=== PATIENT | female | born 1955 | race Caucasian/White ===

== ENCOUNTER → 2016-09-12 | Outpatient (CLI) | payer OTHER ==
[~2016-09-12] MED LIST: ALTACE; ASPIR-LOW81 MG PO; ASPIRIN 81M81 MG/TA2 PO; BACTRIM DS 8001 TAB PO; COLACE 100100 MG/CAP PO; DOXYCYCLINE 10100 MG PO; FLEXERIL 1010 MG/TAB PO; FLEXERIL10 MG PO; FORTAMET500 MG PO; GLUCOTROL5 MG PO; LANTUS100 U/ML; LANTUS100 U/ML SC; LASIX 40MG TABL40 MG PO; LEVAQUIN 5500 MG/TA1 PO; LEVEMIR; LEVEMIR100 U/ML SC; LEVEMIR100 U/ML SQ; LIPITOR 10MG10 MG PO; METFORMIN HCL1000 MG PO; METFORMIN HCL500 M1 PO; METOPROLOL TART75 MG PO; MIRALAX PA17 GM/Dose PO; MOTRIN 800800 MG/TAB PO; NAPROSYN PO; NITROSTAT0.4 MG/TAB SL; NO HOME MEDICATIONS; NORCO 325 MG-51 TAB PO; NORCO 325 MG-7.1 TAB PO; NOVOLOG 100U100 U/M1; NOVOLOG 100U100 U/M1 SQ; PERCOCET 5/321 UDTAB PO; PLAVIX 75MG TAB75 MG PO; PRINIVIL5 MG PO; PROTONIX 40MG T40 MG PO; PYRIDIUM 100MG100 MG PO; TOPROL XL 50MG50 MG PO; TYLENOL 500MG500 MG PO; ULTRAM50 MG PO; VITAMIN; ZESTRIL 10MG10 MG PO; ZOCOR 40MG40 MG PO; ZOFRAN 4MG T4 MG/TAB PO; [UNRECOGNIZED DRUG - REMARK]
== END ==
LOC: WCC 09-07 10:11
DX: E11.621 Type 2 diabetes mellitus with foot ulcer (principal); L97.519 Non-pressure chronic ulcer of other part of right foot with unspecified severity
CPT/HCPCS: 27510; A6197; G0463

== ENCOUNTER → 2016-09-24 | Outpatient (CLI) | payer OTHER | LOC: COL.VAS 09:41 | DX: I70.291 Other atherosclerosis of native arteries of extremities, right leg (principal); I77.1 Stricture of artery; L97.519 Non-pressure chronic ulcer of other part of right foot with unspecified severity; Z89.421 Acquired absence of other right toe(s) ==

== ENCOUNTER → 2016-09-26 | Outpatient (CLI) | payer OTHER | LOC: WCC 11:12 | DX: T81.31XA Disruption of external operation (surgical) wound, not elsewhere classified, initial encounter (principal); E11.9 Type 2 diabetes mellitus without complications | CPT/HCPCS: 18867; 27510; A6197; A6209; G0463 ==

== ENCOUNTER → 2016-10-10 | Outpatient (CLI) | payer OTHER | LOC: WCC 10:11 | DX: E11.621 Type 2 diabetes mellitus with foot ulcer (principal); L97.519 Non-pressure chronic ulcer of other part of right foot with unspecified severity; S98.131A Complete traumatic amputation of one right lesser toe, initial encounter | CPT/HCPCS: 17716; 27510; A6197; A6212; G0463 ==

== ENCOUNTER → 2016-11-05 | Outpatient (CLI) | payer OTHER | LOC: WCC 10-24 11:28 | DX: E11.621 Type 2 diabetes mellitus with foot ulcer (principal); L97.519 Non-pressure chronic ulcer of other part of right foot with unspecified severity; M86.671 Other chronic osteomyelitis, right ankle and foot; Z89.421 Acquired absence of other right toe(s) | CPT/HCPCS: A6212 ==

== ENCOUNTER → 2016-11-19 | Outpatient (CLI) | payer OTHER | LOC: WCC 08:44 | DX: E11.621 Type 2 diabetes mellitus with foot ulcer (principal); L97.519 Non-pressure chronic ulcer of other part of right foot with unspecified severity; S98.131D Complete traumatic amputation of one right lesser toe, subsequent encounter | CPT/HCPCS: 27517; A6207; G0463 ==

== ENCOUNTER 2016-11-28 06:15 | Day surgery (SDC) | payer OTHER ==
[2016-11-28] VITALS (88 sets, daily range): BP systolic 107–170; BP diastolic 48–78; PULSE 70–84; TEMP 97–98; O2SAT 90–99
[~2016-11-28] VITALS: Ht 160 cm; Wt 80.9 kg
[~2016-11-28 06:15] MED LIST changes: -LEVEMIR100 U/ML SQ; -METOPROLOL TART75 MG PO; -NITROSTAT0.4 MG/TAB SL
[2016-11-28 07:04] LABS: CALCIUM 10.3 mg/dL (8.4-10.2); CREATININE, serum 0.96 mg/dL (0.52-1.25); POTASSIUM 4.5 mmol/L (3.4-5.0)
[2016-11-28 07:08] LABS: INR 1.1 (0.8-3.0); PROTHROMBIN TIME 11.8 SECONDS (9.7-12.8)
[2016-11-28 07:14] LABS: HEMATOCRIT 39.3 % (37.0-47.0); HEMOGLOBIN 12.9 g/dl (12.5-16.0); MEAN CELL VOLUME 93 fl (80.0-100.0); MEAN CORPUSCULAR HEMOGLOBIN 30 pg (27.0-31.0); MEAN CORPUSCULAR HGB CONC 33 g/dl (33.0-37.0); MEAN PLATELET VOLUME 11.6 fl (7.4-10.4); PLATELET COUNT 246 K/mm3 (130-400); RED BLOOD COUNT 4.25 M/mm3 (4.10-5.30); REDCELL DISTRIBUTION WIDTH-CV 11.9 % (11.5-14.5)
[2016-11-29] VITALS: BP 125/58; PULSE 73; TEMP 98.1
[2016-11-29 04:00] VITALS: BP 118/62; PULSE 79; TEMP 97.6
[2016-11-29 06:39] LABS: CALCIUM 9.4 mg/dL (8.4-10.2); CREATININE, serum 0.96 mg/dL (0.52-1.25); POTASSIUM 4.2 mmol/L (3.4-5.0)
[2016-11-29 06:43] LABS: BASO % 0.3 % (0.0-2.0); EOS # 0.2 (0.0-0.7); EOS % 3.2 % (0-4.0); GRAN # 4.5 (1.4-6.5); GRAN % 59.7 % (42.2-75.2); HEMATOCRIT 37.3 % (37.0-47.0); HEMOGLOBIN 12.1 g/dl (12.5-16.0); LYMPH # 2.1 (1.2-3.4); LYMPH % 27.4 % (20.0-51.0); MEAN CELL VOLUME 94 fl (80.0-100.0); MEAN CORPUSCULAR HEMOGLOBIN 30 pg (27.0-31.0); MEAN CORPUSCULAR HGB CONC 32 g/dl (33.0-37.0); MEAN PLATELET VOLUME 11.5 fl (7.4-10.4); MONO # 0.7 (0.1-0.6); MONO % 9.1 % (1.7-9.3); PLATELET COUNT 214 K/mm3 (130-400); RED BLOOD COUNT 3.98 M/mm3 (4.10-5.30); WHITE BLOOD COUNT 7.6 K/mm3 (4.8-10.8)
[2016-11-29 07:45] VITALS: BP 127/40; PULSE 74; TEMP 98.3
[2016-11-29] MEDS ORDERED: NITROSTAT0.4 MG/TAB SL (09:27)
== END 2016-11-29 12:10 | disposition home or self-care (01) ==
LOC: COL.CAR 06:15 → IMCU 06:15 → COL.CAR 11-29 12:10
PROVIDERS: Internal Medicine Cardiovascular Disease
DX: T82.855A Stenosis of coronary artery stent, initial encounter (principal); I25.119 Atherosclerotic heart disease of native coronary artery with unspecified angina pectoris; I10 Essential (primary) hypertension; I73.9 Peripheral vascular disease, unspecified; R94.39 Abnormal result of other cardiovascular function study; I25.2 Old myocardial infarction; E11.9 Type 2 diabetes mellitus without complications; E78.5 Hyperlipidemia, unspecified; Z79.4 Long term (current) use of insulin; Z87.891 Personal history of nicotine dependence
CPT/HCPCS: OP; C1760; C1769; C1874; C1887; C9600; C9601; J0583; J1815; J2250; J3010; Q9967

== ENCOUNTER → 2016-12-03 | Outpatient (CLI) | payer OTHER ==
[~2016-12-03] MED LIST changes: +LEVEMIR100 U/ML SQ; +METOPROLOL TART75 MG PO; +NITROSTAT0.4 MG/TAB SL
== END ==
LOC: WCC 08:44
DX: E11.621 Type 2 diabetes mellitus with foot ulcer (principal); L97.519 Non-pressure chronic ulcer of other part of right foot with unspecified severity
CPT/HCPCS: 27510; A6197; G0463

== ENCOUNTER 2017-02-23 18:25 | Inpatient (IN) | payer OTHER ==
[2017-02-23] VITALS (68 sets, daily range): BP systolic 145–146; BP diastolic 59–64; PULSE 78–80; TEMP 97.5; O2SAT 62–100
[~2017-02-23] VITALS: Ht 160 cm; Wt 84.7 kg
[~2017-02-23 18:25] MED LIST changes: -LEVEMIR100 U/ML SQ; -METOPROLOL TART75 MG PO
[2017-02-23 18:45] LABS: BASO % 0.3 % (0.0-2.0); EOS # 0.3 (0.0-0.7); EOS % 3.3 % (0-4.0); GRAN # 4.8 (1.4-6.5); GRAN % 52.8 % (42.2-75.2); HEMOGLOBIN 12.3 g/dl (12.5-16.0); LYMPH # 3.1 (1.2-3.4); MEAN CELL VOLUME 91 fl (80.0-100.0); MEAN CORPUSCULAR HEMOGLOBIN 31 pg (27.0-31.0); MEAN CORPUSCULAR HGB CONC 34 g/dl (33.0-37.0); MEAN PLATELET VOLUME 11.9 fl (7.4-10.4); MONO # 0.8 (0.1-0.6); MONO % 9.3 % (1.7-9.3); PLATELET COUNT 247 K/mm3 (130-400); RED BLOOD COUNT 4.02 M/mm3 (4.10-5.30); REDCELL DISTRIBUTION WIDTH-CV 11.7 % (11.5-14.5); WHITE BLOOD COUNT 9.1 K/mm3 (4.8-10.8)
[2017-02-23 18:46] LABS: HEMATOCRIT 36.4 % (37.0-47.0)
[2017-02-23 18:53] LABS: ADJUSTED CALCIUM 9.7 mg/dL (8.4-10.2); ALANINE AMINOTRANSFERASE 31 U/L (9-52); ALBUMIN 4.4 gm/dL (3.5-5.0); ALKALINE PHOSPHATASE 92 U/L (50-136); ANION GAP 13 mmol/L (7-16); BILIRUBIN,TOTAL 0.9 mg/dL (0.0-1.0); BLOOD UREA NITROGEN 30 mg/dL (7-17); CARBON DIOXIDE 29 mmol/L (22-30); CHLORIDE 95 mmol/L (98-107); CREATININE, serum 1.36 mg/dL (0.52-1.25); GLUCOSE 133 mg/dL (74-106); POTASSIUM 4.1 mmol/L (3.4-5.0); SODIUM 137 mmol/L (137-145); TOTAL PROTEIN 7.9 gm/dL (6.4-8.2)
[2017-02-23 18:55] LABS: PROTHROMBIN TIME 11.2 SECONDS (9.7-12.8)
[2017-02-23 18:57] LABS: PARTIAL THROMBOPLASTIN TIME 29.3 SECONDS (26.0-37.0)
[2017-02-23 19:04] LABS: TROPONIN-I < 0.012 ng/mL (0.000-0.034)
[2017-02-23 22:06] LABS: MAGNESIUM 2.1 mg/dL (1.6-2.3)
[2017-02-24] VITALS (143 sets, daily range): BP systolic 116–159; BP diastolic 52–69; PULSE 65–86; TEMP 96.7–98.1; O2SAT 93–100
[2017-02-24 01:11] LABS: PROTHROMBIN TIME 11.1 SECONDS (9.7-12.8)
[2017-02-24 01:13] LABS: PARTIAL THROMBOPLASTIN TIME 28.9 SECONDS (26.0-37.0)
[2017-02-24 06:01] LABS: BASO % 0.4 % (0.0-2.0); EOS # 0.3 (0.0-0.7); EOS % 4.7 % (0-4.0); GRAN # 3.4 (1.4-6.5); GRAN % 47.1 % (42.2-75.2); LYMPH # 2.9 (1.2-3.4); LYMPH % 40.2 % (20.0-51.0); MEAN CELL VOLUME 92 fl (80.0-100.0); MEAN CORPUSCULAR HGB CONC 33 g/dl (33.0-37.0); MEAN PLATELET VOLUME 11.8 fl (7.4-10.4); MONO # 0.5 (0.1-0.6); MONO % 7.3 % (1.7-9.3); PLATELET COUNT 180 K/mm3 (130-400); RED BLOOD COUNT 3.65 M/mm3 (4.10-5.30); REDCELL DISTRIBUTION WIDTH-CV 11.8 % (11.5-14.5); WHITE BLOOD COUNT 7.2 K/mm3 (4.8-10.8)
[2017-02-24 06:04] LABS: HEMATOCRIT 33.6 % (37.0-47.0); HEMOGLOBIN 11.1 g/dl (12.5-16.0); MEAN CORPUSCULAR HEMOGLOBIN 30 pg (27.0-31.0)
[2017-02-24 06:11] LABS: ADJUSTED CALCIUM 9.5 mg/dL (8.4-10.2); ALBUMIN 3.6 gm/dL (3.5-5.0); BILIRUBIN,TOTAL 0.5 mg/dL (0.0-1.0); CALCIUM 9.2 mg/dL (8.4-10.2); CREATININE, serum 0.93 mg/dL (0.52-1.25); POTASSIUM 3.6 mmol/L (3.4-5.0); TOTAL PROTEIN 6.7 gm/dL (6.4-8.2)
[2017-02-24 06:22] LABS: TROPONIN-I 0.015 ng/mL (0.000-0.034)
[2017-02-25] VITALS (10 sets, daily range): BP systolic 120–163; BP diastolic 55–69; PULSE 77–96; TEMP 97.8–98.7
[2017-02-25] MEDS ORDERED: METOPROLOL TART75 MG PO (11:56)
[2017-02-25] MEDS ORDERED: LEVEMIR100 U/ML SQ (11:58)
== END 2017-02-25 14:19 | disposition home or self-care (01) | DRG 303 ==
LOC: COL.ER 18:25 → ICU 19:35 → MEDICAL 19:35
PROVIDERS: Emergency Medicine; Nurse Practitioner Family
DX: I25.110 Atherosclerotic heart disease of native coronary artery with unstable angina pectoris (principal); N17.9 Acute kidney failure, unspecified; E11.65 Type 2 diabetes mellitus with hyperglycemia; I10 Essential (primary) hypertension; E78.5 Hyperlipidemia, unspecified; R01.1 Cardiac murmur, unspecified; D64.9 Anemia, unspecified; I25.2 Old myocardial infarction; Z95.5 Presence of coronary angioplasty implant and graft; Z87.891 Personal history of nicotine dependence; Z79.4 Long term (current) use of insulin
CPT/HCPCS: 99223-AI; 99233-AI; 99239; A9502; J1650; J1815; J2270; J2785; J7030; J7040

== ENCOUNTER 2017-11-12 13:36 | Inpatient (IN) | payer OTHER ==
[2017-11-12] VITALS (112 sets, daily range): BP systolic 93–103; BP diastolic 54–58; PULSE 77–83; TEMP 97.6–98.3; O2SAT 93–100
[~2017-11-12] VITALS: Ht 160 cm; Wt 78.1 kg
[~2017-11-12 13:36] MED LIST changes: +LEVEMIR100 U/ML SQ; +METOPROLOL TART75 MG PO
[2017-11-12] MEDS ORDERED: ZITHROMAX600 MG PO (16:04)
[2017-11-12 16:23] LABS: BASO % 0.3 % (0.0-2.0); EOS # 0.1 (0.0-0.7); EOS % 0.9 % (0-4.0); GRAN % 74.9 % (42.2-75.2); HEMOGLOBIN 12.1 g/dl (12.5-16.0); LYMPH % 14.4 % (20.0-51.0); MEAN CELL VOLUME 90 fl (80.0-100.0); MEAN CORPUSCULAR HEMOGLOBIN 30 pg (27.0-31.0); MEAN CORPUSCULAR HGB CONC 33 g/dl (33.0-37.0); MEAN PLATELET VOLUME 12.9 fl (7.4-10.4); MONO # 0.6 (0.1-0.6); MONO % 9.1 % (1.7-9.3); PLATELET COUNT 152 K/mm3 (130-400); RED BLOOD COUNT 4.02 M/mm3 (4.10-5.30); REDCELL DISTRIBUTION WIDTH-CV 11.5 % (11.5-14.5)
[2017-11-12 16:24] LABS: HEMATOCRIT 36.2 % (37.0-47.0)
[2017-11-12 16:36] LABS: ALANINE AMINOTRANSFERASE 48 U/L (9-52); ALBUMIN 4.3 gm/dL (3.5-5.0); ALKALINE PHOSPHATASE 204 U/L (50-136); ANION GAP 15 mmol/L (7-16); AST,SGOT 24 U/L (15-37); BLOOD UREA NITROGEN 23 mg/dL (7-17); CALCIUM 9.6 mg/dL (8.4-10.2); CARBON DIOXIDE 23 mmol/L (22-30); CREATININE, serum 0.95 mg/dL (0.52-1.25); POTASSIUM 5.1 mmol/L (3.4-5.0); SODIUM 123 mmol/L (137-145); TOTAL PROTEIN 7.6 gm/dL (6.4-8.2)
[2017-11-12 16:38] LABS: CHLORIDE 85 mmol/L (98-107)
[2017-11-12 16:40] LABS: COLLECTION METHOD CLEAN CATCH
[2017-11-12 16:45] LABS: PH 6 (5-8); SQUAMOUS EPITHELIAL 0-2 /hpf; URINE APPEARANCE Clear; URINE BACTERIA None Seen /hpf; URINE BILIRUBIN Negative (NEGATIVE); URINE BLOOD Negative (NEGATIVE); URINE COLOR Straw; URINE GLUCOSE 3+ (NEGATIVE); URINE KETONE Trace (NEGATIVE); URINE LEUKOCYTE ESTERASE Negative (NEGATIVE); URINE NITRATE Negative (NEGATIVE); URINE PROTEIN(semi-quant) Negative (NEGATIVE); URINE RBC None Seen /hpf; URINE UROBILINOGEN Negative (NEGATIVE)
[2017-11-12 16:46] LABS: LIPASE 137 U/L (23-300); PHOSPHOROUS 5.2 mg/dL (2.5-4.5)
[2017-11-12 16:56] LABS: GLUCOSE 750 mg/dL (74-106)
[2017-11-12 17:36] LABS: ACETONE,SERUM NEGATIVE
[2017-11-13] VITALS (388 sets, daily range): BP systolic 91–132; BP diastolic 44–78; PULSE 73–88; TEMP 98.3–99.2; O2SAT 70–100
[2017-11-13 05:56] LABS: MEAN CELL VOLUME 90 fl (80.0-100.0); MEAN CORPUSCULAR HGB CONC 33 g/dl (33.0-37.0); MEAN PLATELET VOLUME 12.3 fl (7.4-10.4); PLATELET COUNT 158 K/mm3 (130-400); RED BLOOD COUNT 3.84 M/mm3 (4.10-5.30); REDCELL DISTRIBUTION WIDTH-CV 11.8 % (11.5-14.5)
[2017-11-13 06:02] LABS: HEMATOCRIT 34.7 % (37.0-47.0); HEMOGLOBIN 11.6 g/dl (12.5-16.0); MEAN CORPUSCULAR HEMOGLOBIN 30 pg (27.0-31.0)
[2017-11-13 06:08] LABS: ALBUMIN 3.7 gm/dL (3.5-5.0); BILIRUBIN,TOTAL 0.6 mg/dL (0.0-1.0); CALCIUM 8.9 mg/dL (8.4-10.2); CREATININE, serum 0.81 mg/dL (0.52-1.25); TOTAL PROTEIN 6.7 gm/dL (6.4-8.2)
[2017-11-13 15:32] LABS: CALCIUM 8.7 mg/dL (8.4-10.2); CREATININE, serum 0.93 mg/dL (0.52-1.25); POTASSIUM 4.1 mmol/L (3.4-5.0)
[2017-11-14 04:16] VITALS: BP 125/55; PULSE 89; TEMP 99.8
[2017-11-14 06:54] LABS: MEAN CELL VOLUME 93 fl (80.0-100.0); MEAN CORPUSCULAR HGB CONC 33 g/dl (33.0-37.0); MEAN PLATELET VOLUME 12.2 fl (7.4-10.4); PLATELET COUNT 147 K/mm3 (130-400); RED BLOOD COUNT 3.58 M/mm3 (4.10-5.30); REDCELL DISTRIBUTION WIDTH-CV 11.7 % (11.5-14.5)
[2017-11-14 06:58] LABS: HEMATOCRIT 33.1 % (37.0-47.0); HEMOGLOBIN 10.9 g/dl (12.5-16.0); MEAN CORPUSCULAR HEMOGLOBIN 30 pg (27.0-31.0)
[2017-11-14 07:10] LABS: CALCIUM 8.6 mg/dL (8.4-10.2); CREATININE, serum 0.9 mg/dL (0.52-1.25); POTASSIUM 4.2 mmol/L (3.4-5.0)
[2017-11-14 07:34] LABS: ANISOCYTOSIS 1+; BAND 2 % (0-10); EOSINOPHIL 4 % (0-4); LYMPHOCYTE 31 % (20.0-51.0); NEUTROPHILS 55 % (42.0-75.2); PLATELET ESTIMATE NORMAL (NORMAL)
[2017-11-14 08:24] VITALS: BP 108/46; PULSE 87; TEMP 98.1
[2017-11-14 08:51] VITALS: BP 110/58
[2017-11-14 11:11] VITALS: BP 155/66; PULSE 77; TEMP 98
[2017-11-14 15:16] VITALS: BP 110/49; PULSE 83
[2017-11-14 19:43] VITALS: BP 159/65; PULSE 81; TEMP 97.6
[2017-11-15] VITALS (10 sets, daily range): BP systolic 96–143; BP diastolic 36–87; PULSE 71–87; TEMP 97–98.2
[2017-11-15 06:45] LABS: MEAN CELL VOLUME 94 fl (80.0-100.0); MEAN CORPUSCULAR HGB CONC 32 g/dl (33.0-37.0); MEAN PLATELET VOLUME 11.7 fl (7.4-10.4); PLATELET COUNT 140 K/mm3 (130-400); RED BLOOD COUNT 3.66 M/mm3 (4.10-5.30); REDCELL DISTRIBUTION WIDTH-CV 11.6 % (11.5-14.5)
[2017-11-15 06:49] LABS: HEMATOCRIT 34.4 % (37.0-47.0); HEMOGLOBIN 11.1 g/dl (12.5-16.0); MEAN CORPUSCULAR HEMOGLOBIN 30 pg (27.0-31.0)
[2017-11-15 07:01] LABS: CALCIUM 8.9 mg/dL (8.4-10.2); CREATININE, serum 0.81 mg/dL (0.52-1.25); POTASSIUM 4.5 mmol/L (3.4-5.0)
[2017-11-15 08:05] LABS: BAND 3 % (0-10); EOSINOPHIL 8 % (0-4); LYMPHOCYTE 59 % (20.0-51.0); NEUTROPHILS 27 % (42.0-75.2)
[2017-11-15 08:15] LABS: PLATELET ESTIMATE NORMAL (NORMAL)
[2017-11-16 03:40] VITALS: BP 145/55; PULSE 78; TEMP 97.7
[2017-11-16 07:32] LABS: MEAN CELL VOLUME 94 fl (80.0-100.0); MEAN CORPUSCULAR HGB CONC 32 g/dl (33.0-37.0); MEAN PLATELET VOLUME 12.2 fl (7.4-10.4); PLATELET COUNT 169 K/mm3 (130-400); RED BLOOD COUNT 3.89 M/mm3 (4.10-5.30); REDCELL DISTRIBUTION WIDTH-CV 11.9 % (11.5-14.5)
[2017-11-16 07:37] LABS: HEMATOCRIT 36.6 % (37.0-47.0); HEMOGLOBIN 11.7 g/dl (12.5-16.0); MEAN CORPUSCULAR HEMOGLOBIN 30 pg (27.0-31.0)
[2017-11-16 07:41] LABS: CALCIUM 9.3 mg/dL (8.4-10.2); CREATININE, serum 0.75 mg/dL (0.52-1.25); POTASSIUM 4.5 mmol/L (3.4-5.0)
[2017-11-16 08:01] VITALS: BP 130/49; PULSE 78; TEMP 98.3
[2017-11-16 08:33] LABS: BAND 2 % (0-10); EOSINOPHIL 2 % (0-4); HYPOCHROMIA 1+; LYMPHOCYTE 55 % (20.0-51.0); NEUTROPHILS 34 % (42.0-75.2); PLATELET ESTIMATE NORMAL (NORMAL)
[2017-11-16 11:20] VITALS: BP 128/43; PULSE 78; TEMP 98.4
[2017-11-16 15:13] VITALS: BP 115/48; PULSE 73; TEMP 98
[2017-11-16 20:07] VITALS: BP 149/61; PULSE 82; TEMP 97.8
[2017-11-17 00:32] VITALS: BP 123/52; PULSE 78; TEMP 98.6
[2017-11-17 04:16] VITALS: BP 147/65; PULSE 79; TEMP 98
[2017-11-17 07:31] LABS: BASO % 0.4 % (0.0-2.0); EOS # 0.2 (0.0-0.7); EOS % 3.6 % (0-4.0); GRAN # 2.5 (1.4-6.5); GRAN % 47.5 % (42.2-75.2); HEMOGLOBIN 12.2 g/dl (12.5-16.0); LYMPH # 2.1 (1.2-3.4); MEAN CELL VOLUME 94 fl (80.0-100.0); MEAN CORPUSCULAR HEMOGLOBIN 30 pg (27.0-31.0); MEAN CORPUSCULAR HGB CONC 32 g/dl (33.0-37.0); MONO # 0.4 (0.1-0.6); MONO % 8.1 % (1.7-9.3); PLATELET COUNT 209 K/mm3 (130-400); RED BLOOD COUNT 4.03 M/mm3 (4.10-5.30); REDCELL DISTRIBUTION WIDTH-CV 11.6 % (11.5-14.5)
[2017-11-17 07:48] LABS: CALCIUM 9.5 mg/dL (8.4-10.2); CREATININE, serum 0.71 mg/dL (0.52-1.25); MAGNESIUM 1.9 mg/dL (1.6-2.3); PHOSPHOROUS 4.6 mg/dL (2.5-4.5); POTASSIUM 4.3 mmol/L (3.4-5.0)
[2017-11-17 08:05] VITALS: BP 128/49; PULSE 86; TEMP 98.2
[2017-11-17 11:42] VITALS: BP 100/41; PULSE 74; TEMP 97.5
[2017-11-17 15:41] VITALS: BP 141/49; PULSE 79; TEMP 98.2
[2017-11-17] MEDS ORDERED: COLACE 100100 MG/CAP PO (18:55)
[2017-11-17] MEDS ORDERED: NOVOLOG 100U100 U/M1 SQ (18:56)
[2017-11-17] MEDS ORDERED: FLONASE NASAL S16 GM NS (18:56)
[2017-11-17] MEDS ORDERED: LEVEMIR100 U/ML SQ (18:56)
== END 2017-11-17 19:55 | disposition home or self-care (01) | DRG 638 ==
LOC: COL.ER 13:36 → ICU 17:13 → MEDICAL 11-13 21:00
PROVIDERS: Emergency Medicine; Internal Medicine; Physician Assistant
DX: E11.00 Type 2 diabetes mellitus with hyperosmolarity without nonketotic hyperglycemic-hyperosmolar coma (NKHHC) (principal); E87.1 Hypo-osmolality and hyponatremia; E11.65 Type 2 diabetes mellitus with hyperglycemia; E11.42 Type 2 diabetes mellitus with diabetic polyneuropathy; E11.319 Type 2 diabetes mellitus with unspecified diabetic retinopathy without macular edema; I10 Essential (primary) hypertension; Z87.891 Personal history of nicotine dependence; E87.5 Hyperkalemia; E87.8 Other disorders of electrolyte and fluid balance, not elsewhere classified; Z91.14 Patient's other noncompliance with medication regimen; Z23 Encounter for immunization; J01.90 Acute sinusitis, unspecified
CPT/HCPCS: 99223-AI; 99232-AI; 99239; J1650; J1815; J3480; J7030; J7040; J7070

== ENCOUNTER → 2018-10-27 | Outpatient (CLI) | payer MEDICARE ==
[~2018-10-27] MED LIST changes: +FLONASE NASAL S16 GM NS; +HUMULIN 70/3100 U/M1 SQ; +ZITHROMAX600 MG PO
== END ==
LOC: SUN.DIA 14:11
DX: E11.40 Type 2 diabetes mellitus with diabetic neuropathy, unspecified (principal); Z79.4 Long term (current) use of insulin; E78.5 Hyperlipidemia, unspecified; I10 Essential (primary) hypertension; F17.210 Nicotine dependence, cigarettes, uncomplicated
CPT/HCPCS: G0108

== ENCOUNTER → 2018-11-06 | Outpatient (CLI) | payer MEDICARE | LOC: MC.RAD 10:45 | DX: Z12.31 Encounter for screening mammogram for malignant neoplasm of breast (principal) ==

== ENCOUNTER 2019-06-02 15:13 | Emergency (ER) | payer MEDICARE ==
[~2019-06-02] VITALS: Ht 157.5 cm; Wt 81.8 kg
[2019-06-02 15:25] VITALS: TEMP 98.2
[2019-06-02 16:55] LABS: BASO % 0.3 % (0.0-2.0); EOS # 0.4 (0.0-0.7); EOS % 4.7 % (0-4.0); GRAN # 4.9 (1.4-6.5); GRAN % 61.7 % (42.2-75.2); HEMATOCRIT 41.1 % (37.0-47.0); HEMOGLOBIN 13.5 g/dl (12.5-16.0); LYMPH # 1.9 (1.2-3.4); LYMPH % 24.3 % (20.0-51.0); MEAN CELL VOLUME 92 fl (80.0-100.0); MEAN CORPUSCULAR HEMOGLOBIN 30 pg (27.0-31.0); MEAN CORPUSCULAR HGB CONC 33 g/dl (33.0-37.0); MONO # 0.7 (0.1-0.6); MONO % 8.6 % (1.7-9.3); PLATELET COUNT 221 K/mm3 (130-400); RED BLOOD COUNT 4.47 M/mm3 (4.10-5.30); REDCELL DISTRIBUTION WIDTH-CV 11.9 % (11.5-14.5)
[2019-06-02 17:06] LABS: CALCIUM 9.8 mg/dL (8.4-10.2); CREATININE, serum 1.08 (0.52-1.25); POTASSIUM 4.4 mmol/L (3.4-5.0)
[2019-06-02] MEDS ORDERED: NORCO 325 MG-51 TAB PO (17:45)
[2019-06-02 19:06] VITALS: BP 130/54; PULSE 76
== END 2019-06-02 19:06 | disposition home or self-care (01) ==
LOC: COL.ER 15:13
PROVIDERS: Emergency Medicine
DX: S92.352A Displaced fracture of fifth metatarsal bone, left foot, initial encounter for closed fracture (principal); I10 Essential (primary) hypertension; E11.9 Type 2 diabetes mellitus without complications; E78.5 Hyperlipidemia, unspecified; Z79.82 Long term (current) use of aspirin; Z79.02 Long term (current) use of antithrombotics/antiplatelets; Z79.4 Long term (current) use of insulin; X50.1XXA Overexertion from prolonged static or awkward postures, initial encounter
CPT/HCPCS: J1815; J7030

== ENCOUNTER → 2019-06-03 | Outpatient (CLI) | payer MEDICARE | LOC: COL.LAB 14:50 | DX: E10.9 Type 1 diabetes mellitus without complications (principal); S92.902A Unspecified fracture of left foot, initial encounter for closed fracture ==

== ENCOUNTER 2020-07-11 06:47 | Day surgery (SDC) | payer MEDICARE ==
[~2020-07-11] VITALS: Ht 160 cm; Wt 80.5 kg
[~2020-07-11 06:47] MED LIST changes: -ASPIRIN 81M81 MG/TA2 PO; +ASPIRIN E.C. 8181 MG PO
[2020-07-11] MEDS ORDERED: PRINIVIL40 MG PO (07:29)
[2020-07-11] MEDS ORDERED: LOPRESSOR 550 MG/TAB PO (07:30)
[2020-07-11] MEDS ORDERED: MYSOLINE 5050 MG/TAB PO (07:33)
[2020-07-11] MEDS ORDERED: COLACE 100100 MG/CAP PO (07:34)
[2020-07-11] MEDS ORDERED: NOVOLIN 70100 UNIT/2 SQ (07:36)
[2020-07-11 07:58] VITALS: BP 140/52; PULSE 72; TEMP 97.6
[2020-07-11] MEDS ORDERED: NORCO 325 MG-51 TAB PO (09:55)
[2020-07-11] MEDS ORDERED: BACTRIM DS 8001 TAB PO (09:56)
[2020-07-11 10:05] VITALS: BP 135/61; PULSE 78; TEMP 97.2
--- NOTE | 2020-07-11 10:05 | NUR ---
Patient arrives back to [facility] alert and complains of severe pain in left foot. Patient monitor applied, vitals stable. Patient's spouse at bedside. Orders obtained from CRN for prn pain medications.
--- NOTE | 2020-07-11 10:15 | NUR ---
Patint given second dose of PRN pain medication. Dressing on left foot clean/dry/intact, left foot is still slightly numb with limited movement from pre-procedure anesthesia block. Vitals stable, patient tolerating water well.
[2020-07-11 10:20] VITALS: BP 165/56; PULSE 79
[2020-07-11 10:50] VITALS: BP 156/51; PULSE 79
--- NOTE | 2020-07-11 10:50 | NUR ---
Patient given water and jello, denies nausea, reports pain is getting better.
[2020-07-11 11:05] VITALS: BP 149/50; PULSE 80
--- NOTE | 2020-07-11 11:15 | NUR ---
Patient reports pain is better, but still there. PRN oral pain medication given. Vitals stable.
[2020-07-11 11:35] VITALS: BP 161/49; PULSE 80
--- NOTE | 2020-07-11 12:00 | NUR ---
Patient reports her pain is much better/undercontrol and states she is ready to go home now.
--- NOTE | 2020-07-11 12:25 | NUR ---
Dismissal instructions gone over with patient and patient's spouse. Both verbalize understanding and all questions answered. Antibiotic prescription verified with Dr Shen's nurse, and they will be contacting the patient if it needs to be stopped or changed. Patient voices understanding.
--- NOTE | 2020-07-11 12:30 | NUR ---
Patient up to restroom at this time with wheelwalker and standby assist. Patient is only using left heel for transfers.
--- NOTE | 2020-07-11 12:45 | NUR ---
Patient discharged to private vehicle at patient enterance via wheelchair without any complications. Patient and family leave thanking staff for services.
== END 2020-07-11 12:45 | disposition home or self-care (01) ==
LOC: SDCO 06:47
DX: L97.521 Non-pressure chronic ulcer of other part of left foot limited to breakdown of skin (principal); S92.352K Displaced fracture of fifth metatarsal bone, left foot, subsequent encounter for fracture with nonunion; I11.9 Hypertensive heart disease without heart failure; E11.42 Type 2 diabetes mellitus with diabetic polyneuropathy; D64.9 Anemia, unspecified; E78.5 Hyperlipidemia, unspecified; M19.90 Unspecified osteoarthritis, unspecified site; I25.10 Atherosclerotic heart disease of native coronary artery without angina pectoris; Z20.828 Contact with and (suspected) exposure to other viral communicable diseases; X58.XXXD Exposure to other specified factors, subsequent encounter; Z79.82 Long term (current) use of aspirin; Z79.899 Other long term (current) drug therapy; Z79.4 Long term (current) use of insulin; Z95.9 Presence of cardiac and vascular implant and graft, unspecified; Z95.818 Presence of other cardiac implants and grafts; Z89.421 Acquired absence of other right toe(s); Z87.891 Personal history of nicotine dependence; Z88.6 Allergy status to analgesic agent; Z88.5 Allergy status to narcotic agent; Z79.2 Long term (current) use of antibiotics; Z79.02 Long term (current) use of antithrombotics/antiplatelets
CPT/HCPCS: J0690; J1100; J1170; J1885; J2250; J2405; J2704; J2795; J3010; J7030